=== PATIENT | female | born 1985 | race African-American/Black ===

== ENCOUNTER 2024-07-23 22:48 | Emergency (ER) | payer MEDICAID, OTHER ==
[~2024-07-23] VITALS: Ht 172.7 cm; Wt 70.0 kg
[~2024-07-23 22:48] MED LIST: PRENATAL VITS
[2024-07-23 22:50] VITALS: BP 117/71; PULSE 130; RESP 14; TEMP 102; O2SAT 100
[2024-07-23] MEDS ORDERED: ACETAMINOPHEN 500MG TABLET PO NR (23:00)
[2024-07-24] MEDS ORDERED: ACETAMINOPHEN 500MG TABLET PO NR (05:15)
== END 2024-07-23 23:50 | disposition left against medical advice (07) ==
LOC: ER 22:48
DX: R11.10 Vomiting, unspecified (principal); Z53.21 Procedure and treatment not carried out due to patient leaving prior to being seen by health care provider